=== PATIENT | male | born 1975 ===

== ENCOUNTER 2016-10-16 09:17 | Emergency (ER) | payer BC ==
--- NOTE | 2016-10-16 09:38 | UC ---
Throat Pain/Nasal Eben HPI - HPI Summary HPI Summary: complaint of nasal congestion ,cough ,sore throat that started 2 days ago right eye redness and itchiness and purulent drainage denies vision changes and eye pain feels that his throat is getting worse denies fever and chills taking ibuprofen with some relief his and 2 children with same illness - History of Current Complaint Hx Obtained From: Patient <Shira Zelaya - Last Filed: 10/16/16 09:49> <Airam Magallon - Last Filed: 10/16/16 11:07> - History of Current Complaint Chief Complaint: UCGeneralIllness Stated Complaint: SORE THROAT,PINK EYE Time Seen by Provider: 10/16/16 09:28 - Allergies/Home Medications Allergies/Adverse Reactions: Allergies Allergy/AdvReac Type Severity Reaction Status Date / Time No Known Allergies Allergy Verified 10/16/16 09:21 Home Medications: Home Medications Ibuprofen TAB* [Advil TAB*] 4 tab PO PRN 10/16/16 [History] PMH/Surg Hx/FS Hx/Imm Hx Previously Healthy: Yes - Surgical History Surgical History: None - Family History Known Family History: Negative: Cardiac Disease, Hypertension, Diabetes - Social History Occupation: Employed Full-time Lives: With Family Alcohol Use: Rare Substance Use Type: None Smoking Status (MU): Never Smoked Tobacco <Shira Zelaya - Last Filed: 10/16/16 09:49> Review of Systems Constitutional: Negative Skin: Negative Eyes: Drainage, Eye Redness ENT: Sore Throat, Nasal Discharge Respiratory: Cough Cardiovascular: Negative Gastrointestinal: Negative Genitourinary: Negative Motor: Negative Neurovascular: Negative Musculoskeletal: Negative Neurological: Negative Psychological: Negative All Other Systems Reviewed And Are Negative: Yes <Shira Zelaya - Last Filed: 10/16/16 09:49> Physical Exam Triage Information Reviewed: Yes Appearance: No Pain Distress, Well-Nourished Vital Signs: Initial Vital Signs Temp 98.1 F 10/16/16 09:22 Pulse 76 10/16/16 09:22 Resp 16 10/16/16 09:22 BP 123/85 10/16/16 09:22 Pulse Ox 96 10/16/16 09:22 Vital Signs Reviewed: Yes Eyes: Positive: Conjunctiva Inflamed - right eye, Discharge - right eye ENT: Positive: Pharyngeal erythema, Nasal congestion, Nasal drainage, TMs normal Neck: Positive: No Lymphadenopathy Respiratory: Positive: Lungs clear, Normal breath sounds, No respiratory distress, No accessory muscle use Cardiovascular: Positive: RRR, No Murmur, Pulses Normal, Brisk Capillary Refill Abdomen Description: Positive: Nontender, Soft Bowel Sounds: Positive: Present Musculoskeletal: Positive: No Edema Neurological: Positive: Alert Psychological Exam: Normal Skin Exam: Normal <Shira Zelaya - Last Filed: 10/16/16 09:49> Vital Signs: Initial Vital Signs Temp 98.1 F 10/16/16 09:22 Pulse 76 10/16/16 09:22 Resp 16 10/16/16 09:22 BP 123/85 10/16/16 09:22 Pulse Ox 96 10/16/16 09:22 <Airam Magallon - Last Filed: 10/16/16 11:07> Throat Pain/Nasal Course/Dx - Course Course Of Treatment: exam competed. viral URI supportive measures. will treat conjuncitivitis with tobrex - Differential Dx/Diagnosis Differential Diagnosis/HQI/PQRI: URI Provider Diagnoses: right conunctivitis, URI <Shira Zelaya - Last Filed: 10/16/16 09:49> Discharge <Shira Zelaya - Last Filed: 10/16/16 09:49> <Airam Magallon - Last Filed: 10/16/16 11:07> - Discharge Plan Condition: Stable Disposition: HOME Prescriptions: Tobramycin 0.3% OPHTH.SVEN* 2 drop RIGHT EYE Q4H #1 btl Patient Education Materials: Conjunctivitis (ED), Upper Respiratory Infection ( ED) Referrals: [facility] [place] [facility] [Outside] Additional Instructions: Please start antibiotic eyedrops as directed Increase fluids and rest Take acetaminophen or ibuprofen for fever or pain Please review your discharge instructions. If your symptoms do not improve please call your primary care provider or return to urgent care. Attestation Statement User Type: Provider - I was available for consult. This patient was seen by the [facility]. The patient was not presented to, seen by, or examined by me. -Allan <Airam Magallon - Last Filed: 10/16/16 11:07>
== END 2016-10-16 09:55 | disposition home or self-care (01) ==
LOC: UCEAST 09:17
DX: H10.9 Unspecified conjunctivitis (principal); J06.9 Acute upper respiratory infection, unspecified
CPT/HCPCS: 99202; G0463